=== PATIENT | female | born 1945 | race Caucasian/White ===

== ENCOUNTER 2017-03-26 18:57 | Emergency (ER) | payer OTHER ==
[2017-03-26 19:00] VITALS: BP 177/84; PULSE 86; RESP 20; TEMP 97.2; O2SAT 96
[2017-03-26] MEDS ORDERED: CLINDAMYCIN INJ 600 MG in SODIUM CHLORIDE 0.9% INJ 100 ML IV ONE (21:15)
[2017-03-26 21:29] VITALS: BP 163/72; PULSE 72; RESP 16; O2SAT 97
[2017-03-26 22:07] LABS: AUTOMATED NEUTROPHIL # 5.2 TH/MM3 (1.8-7.7); BASOPHIL # 0.1 TH/MM3 (0-0.2); BASOPHIL % 0.9 % (0.0-2.0); EOSINOPHIL # 0.7 TH/MM3 (0-0.4); EOSINOPHIL % 7.7 % (0.0-4.0); HEMATOCRIT 32.4 % (35.0-46.0); HEMO FLAGS DIFF FINAL; LYMPH % 29.5 % (9.0-44.0); LYMPHOCYTE # 2.8 TH/MM3 (1.0-4.8); MEAN CELL VOLUME 96.2 FL (80.0-100.0); MEAN CORPUSCULAR HEMOGLOBIN 31.6 PG (27.0-34.0); MEAN CORPUSCULAR HGB CONC 32.8 % (32.0-36.0); MONO % 7.5 % (0.0-8.0); NEUT % 54.4 % (16.0-70.0); PLATELET COUNT 317 TH/MM3 (150-450); RED BLOOD COUNT 3.37 MIL/MM3 (4.00-5.30); RED CELL DISTRIBUTION WIDTH 13.8 % (11.6-17.2); WHITE BLOOD COUNT 9.6 TH/MM3 (4.0-11.0)
[2017-03-26 22:10] LABS: BICARBONATE 24.7 MEQ/L (21.0-32.0); POTASSIUM 3.7 MEQ/L (3.5-5.1)
[2017-03-26] MEDS ORDERED: traMADol HCL 50 MG TAB PO ONE (22:15)
[2017-03-26] MEDS ORDERED: TRAM50TA PO (22:17)
[2017-03-26] MEDS ORDERED: CLIN1CAP5 PO (22:17)
--- NOTE | 2017-03-26 22:25 | PD ---
HPI Chief Complaint: Skin Problem Time Seen by Provider: 21:00 Travel History International Travel<30 days: No Contact w/Intl Traveler<30days: No Traveled to known affect area: No History of Present Illness HPI 71-year-old female that presents to the ED for evaluation of lower leg cellulitis. Per patient she has a history of this in the past. Per patient for the past 2-3 days she developed this infection. She has a history of chronic ulcers to her legs from peripheral artery disease. Per patient she had severe once about 18 months ago and she has been doing wound care with success. Per patient she's had 3 episodes of infections. Per patient usually gets antibiotics and gets better. Per patient she comes specifically for that. She states that she has pain on her legs from the infection. Per patient the pain is 7 out of 10. She states that she has multiple allergies to different antibiotic ointments and she does not use them because of this. She states that she has not done anything that could cause this but she does state that whenever she exerts herself this infection started. No history of diabetes or immunosuppression. No fevers chills or sweats. Symptoms ongoing for 2 days. She does have chronic erythema to the legs bilaterally. PFSH Past Medical History High Cholesterol: Yes Hypertension: Yes Past Surgical History Other Surgery: Yes (TRIPPLE A REPAIR, BOWEL RECONSTRUCTION AND HERNIA REPAIR ) Social History Alcohol Use: No Tobacco Use: No Substance Use: No Allergies-Medications (Allergen,Severity, Reaction): Coded Allergies: bacitracin (Verified Allergy, Intermediate, 03/26/17) gentamicin (Verified Allergy, Intermediate, 03/26/17) mupirocin (Verified Allergy, Intermediate, 03/26/17) neomycin (Verified Allergy, Intermediate, 03/26/17) polymyxin B (Verified Allergy, Intermediate, 03/26/17) Reported Meds & Prescriptions Reported Meds & Active Scripts Active Tramadol (Tramadol HCl) 50 Mg Tab 50 Mg PO Q6H PRN Clindamycin (Clindamycin HCl) 150 Mg Cap 150 Mg PO Q6H 10 Days Review of Systems Except as stated in HPI: all other systems reviewed are Neg Physical Exam Narrative GENERAL: SKIN: Warm and dry. HEAD: Atraumatic. Normocephalic. EYES: Pupils equal and round. No scleral icterus. No injection or drainage. ENT: No nasal bleeding or discharge. Mucous membranes pink and moist. Tongue is midline. No uvula deviation. NECK: Trachea midline. No JVD. CARDIOVASCULAR: Regular rate and rhythm. RESPIRATORY: No accessory muscle use. Clear to auscultation. Breath sounds equal bilaterally. GASTROINTESTINAL: Abdomen soft, non-tender, nondistended. Hepatic and splenic margins not palpable. MUSCULOSKELETAL: Extremities without clubbing, cyanosis, or edema. No obvious deformities. Full range of motion of the upper and lower extremities bilaterally. 2+ pulses bilaterally. Patient does have what appears to be chronic ulcers to the lower legs bilaterally with what appears to be erythema especially on the medial aspect of the legs as well as in the lateral aspect. Went to the touch. About 5 cm in both legs. More noticeable on the left leg. Patient does have yellow crusting of some of the wounds. Patient does have 2+ pulses on the dorsalis pedis of both lower legs. Some of the erythema and wounds per patient are chronic. NEUROLOGICAL: Awake and alert. No obvious cranial nerve deficits. Motor grossly within normal limits. Five out of 5 muscle strength in the arms and legs. Normal speech. PSYCHIATRIC: Appropriate mood and affect; insight and judgment normal. Data Data Last Documented VS Vital Signs Date Time Temp Pulse Resp B/P (MAP) Pulse Ox O2 Delivery O2 Flow Rate FiO2 03/26/17 21:29 72 16 163/72 (102) 97 Room Air 03/26/17 19:00 97.2 Orders Orders Basic Metabolic Panel (Bmp) (03/26/17 21:12) Complete Blood Count With Diff (03/26/17 21:12) Blood Culture (03/26/17 21:12) Wound Culture And Gram Stain (03/26/17 21:12) Wound Care (03/26/17 21:12) Clindamycin Inj (Cleocin Inj) (03/26/17 21:15) Tramadol (Ultram) (03/26/17 22:15) Labs Laboratory Tests Test 03/26/17 21:25 White Blood Count 9.6 TH/MM3 Red Blood Count 3.37 MIL/MM3 Hemoglobin 10.7 GM/DL Hematocrit 32.4 % Mean Corpuscular Volume 96.2 FL Mean Corpuscular Hemoglobin 31.6 PG Mean Corpuscular Hemoglobin Concent 32.8 % Red Cell Distribution Width 13.8 % Platelet Count 317 TH/MM3 Mean Platelet Volume 8.4 FL Neutrophils (%) (Auto) 54.4 % Lymphocytes (%) (Auto) 29.5 % Monocytes (%) (Auto) 7.5 % Eosinophils (%) (Auto) 7.7 % Basophils (%) (Auto) 0.9 % Neutrophils # (Auto) 5.2 TH/MM3 Lymphocytes # (Auto) 2.8 TH/MM3 Monocytes # (Auto) 0.7 TH/MM3 Eosinophils # (Auto) 0.7 TH/MM3 Basophils # (Auto) 0.1 TH/MM3 CBC Comment DIFF FINAL Differential Comment Blood Urea Nitrogen 17 MG/DL Creatinine 0.86 MG/DL Random Glucose 89 MG/DL Calcium Level 9.1 MG/DL Sodium Level 130 MEQ/L Potassium Level 3.7 MEQ/L Chloride Level 97 MEQ/L Carbon Dioxide Level 24.7 MEQ/L Anion Gap 8 MEQ/L Estimat Glomerular Filtration Rate 65 ML/MIN MDM Medical Decision Making Medical Screen Exam Complete: Yes Emergency Medical Condition: Yes Medical Record Reviewed: Yes Interpretation(s) CBC & BMP Diagram 03/26/17 21:25 Calcium Level 9.1 Differential Diagnosis Cellulitis versus chronic wounds versus ulcers versus impetigo Narrative Course 71-year-old female that presents to the ED for evaluation of possible infection to her legs. Patient was properly examined and was found to have signs and symptoms consistent with what appears to be mild cellulitis. She has chronic wounds and she has had some colitis in the past. Per patient she cannot put antibiotic ointment on the wounds because she has severe reactions to them. She is here specifically to get antibiotics. Labs were drawn. IV was started. Patient was given IV clindamycin here. Patient will be sent home with prescription for clindamycin. Labs were essentially unremarkable with no sign of abnormal so can't. Patient has an appointment on Tuesday with her primary care doctor and agrees to follow-up with her doctor. She was given tramadol for pain and a prescription for this. She was told to do the wound care as prescribed by her doctor. She was told that if anything worsens she is to come back to the ED. Follow with PCP. Diagnosis Primary Impression: Bilateral lower leg cellulitis Patient Instructions: General Instructions, Narcotic given in the ED Additional Instructions: Take medication as prescribed. Follow with PCP on tuesday. See ED worsening symptoms. Try to change dressings every day. Try to keep wounds away from [place] to prevent reinfection. You started developing worsening wounds or do not feel like he getting better come back to the ED to get reevaluated. Med/Other Pt SpecificInfo: Prescription(s) given Scripts Tramadol (Tramadol) 50 Mg Tab 50 MG PO Q6H Y for PAIN, #15 TAB 0 Refills Prov: Leroy Benites MD 03/26/17 Clindamycin (Clindamycin) 150 Mg Cap 150 MG PO Q6H for Infection for 10 Days, CAP 0 Refills Prov: Leroy Benites MD 03/26/17 Disposition: 01 DISCHARGE HOME Condition: Stable Shubham Cobos Mar 26, 2017 22:25
== END 2017-03-26 22:57 | disposition home or self-care (01) ==
LOC: NEPE 18:57
DX: L03.115 Cellulitis of right lower limb (principal); L03.116 Cellulitis of left lower limb; B95.61 Methicillin susceptible Staphylococcus aureus infection as the cause of diseases classified elsewhere; B96.5 Pseudomonas (aeruginosa) (mallei) (pseudomallei) as the cause of diseases classified elsewhere; B96.1 Klebsiella pneumoniae [K. pneumoniae] as the cause of diseases classified elsewhere
CPT/HCPCS: 80048; 85025; 86403; 87040; 87070; 87077; 87186; 87205; 96365